=== PATIENT | female | born 1990 | race Caucasian/White ===

== ENCOUNTER 2021-06-01 09:25 | Emergency (ER) | payer OTHER ==
[~2021-06-01] VITALS: Ht 165.1 cm; Wt 81.7 kg
[~2021-06-01 09:25] MED LIST: FLEXERIL PO; MOBIC15 MG PO; NOHOMEMEDICATIONS; NORCO 7.5-3251 EACH PO; PRENATAL
[2021-06-01] MEDS ORDERED: ADDERALL 10 MG10 MG PO (09:43)
[2021-06-01] MEDS ORDERED: BASAGLAR K100 UNIT/1 SUBQ (09:43)
[2021-06-01] MEDS ORDERED: LIPITOR 20 MG T20 M1 PO (09:43)
[2021-06-01] MEDS ORDERED: DULOXETINE HCL40 MG PO (09:44)
[2021-06-01] MEDS ORDERED: TRULICITY0.75 MG/0. (09:44)
[2021-06-01] MEDS ORDERED: GLUMETZA500 M1 PO (09:44)
[2021-06-01 11:04] LABS: ABSOLUTE BASOPHILS 0.1 thou/uL (0.0-0.2); ABSOLUTE EOSINOPHILS 0.1 thou/uL (0.0-0.7); ABSOLUTE LYMPHOCYTES 2.1 thou/uL (0.8-5.3); ABSOLUTE MONOCYTES 0.4 thou/uL (0.0-1.2); ABSOLUTE NEUTROPHILS 5.3 thou/uL (1.6-8.1); BASOPHILS 1.3 %; EOSINOPHILS 1.1 %; HEMATOCRIT 37.2 % (37.0-47.0); MCH 23.8 pg (26.0-34.0); MCHC 32.3 g/dL (28.0-37.0); MCV 73.6 fL (80.0-100.0); MONOCYTES 4.8 %; MPV 6.7 fl. (7.2-11.1); NUCLEATED RBCS 0 /100WBC; PLATELET COUNT* 307 thou/uL (150-400); POLYS 66.8 %; RBC 5.05 mil/uL (4.20-5.00); RDW-CV 13.7 % (10.5-14.5); WBC 7.9 thou/uL (4.0-11.0)
[2021-06-01 11:22] LABS: CALCIUM 8.8 mg/dL (8.5-10.1); CREATININE 0.9 mg/dL (0.6-1.3); POTASSIUM 3.5 mmol/L (3.5-5.1)
[2021-06-01 11:26] LABS: ALBUMIN 3.5 g/dL (3.4-5.0); TOTAL BILIRUBIN 0.2 mg/dL (<0.1-1.0); TOTAL PROTEIN 7.4 g/dL (6.4-8.2)
[2021-06-01] MEDS ORDERED: CEPHALEXIN500 MG PO (11:29)
[2021-06-01 11:33] VITALS: BP 157/103
== END 2021-06-01 11:34 | disposition home or self-care (01) ==
LOC: M.ERS 09:25
PROVIDERS: Physician Assistant
DX: S80.861A Insect bite (nonvenomous), right lower leg, initial encounter (principal); L08.9 Local infection of the skin and subcutaneous tissue, unspecified; E11.65 Type 2 diabetes mellitus with hyperglycemia; W57.XXXA Bitten or stung by nonvenomous insect and other nonvenomous arthropods, initial encounter; Y93.89 Activity, other specified; Y92.89 Other specified places as the place of occurrence of the external cause; Y99.8 Other external cause status